=== PATIENT | female | born 1940 | race Caucasian/White ===

== ENCOUNTER 2017-06-30 10:15 | Emergency (ER) | payer OTHER ==
[~2017-06-30] VITALS: Ht 154.9 cm; Wt 55.9 kg
[2017-06-30 10:15] VITALS: Ht 154.9 cm; Wt 55.9 kg
[2017-06-30] MEDS ORDERED: ONDANSETRON 4 MG INJ IV STA (10:18)
[2017-06-30] MEDS ORDERED: SOD CHLORIDE 0.9% 1,000 ML IV STA (10:18)
--- NOTE | 2017-06-30 10:40 | RADRPT ---
PROCEDURE: Chest x-ray CLINICAL INDICATION: Chest pain TECHNIQUE: Chest single view COMPARISON: None FINDINGS: The heart is normal in size. The pulmonary vessels are normal in caliber. The lungs are clear. Th e costophrenic angles are sharp. The visualized bony thorax is unremarkable. IMPRESSION: No acute cardiopulmonary disease. RPTAT: HH .Wenceslao Raygoza MD, Date Time Electronically viewed and signed by .Wenceslao Raygoza MD, MD on 06/30/2017 10:40 .W/
[2017-06-30 10:46] LABS: BASOPHILS % 0.5 % (0.0-2.0); EOSINOPHILS # 0.1 10^3/ul (0.0-0.5); EOSINOPHILS % 1.2 % (0.0-7.0); HEMATOCRIT 41.3 % (37.0-47.0); LYMPHOCYTES # 2.9 10^3/ul (0.8-2.9); LYMPHOCYTES % 34.6 % (15.0-51.0); MEAN CORPUSCULAR HEMOGLOBIN 31.5 pg (29.0-33.0); MEAN CORPUSCULAR HGB CONC 33.9 g/dl (32.0-37.0); MEAN CORPUSCULAR VOLUME 92.8 fl (82.0-101.0); MONOCYTE # 0.7 10^3/ul (0.3-0.9); MONOCYTES % 8.3 % (0.0-11.0); NEUTROPHIL # 4.7 10^3/ul (1.6-7.5); NEUTROPHILS % 55.2 % (39.0-77.0); PLATELET COUNT 220 10^3/UL (140-415); RED BLOOD COUNT 4.45 10^6/ul (4.20-5.40); RED CELL DISTRIBUTION WIDTH 12.5 % (11.5-14.5); WHITE BLOOD COUNT 8.5 10^3/ul (4.8-10.8)
[2017-06-30 11:08] LABS: CALCIUM 9.2 mg/dl (8.4-10.2); CREATININE 0.76 mg/dl (0.44-1.00)
[2017-06-30 11:20] LABS: TROPONIN-I 0.015 ng/ml (0.00-0.12)
--- NOTE | 2017-06-30 11:46 | ERA ---
ER Documentation Chief Complaint Date/Time DATE: 06/30/17 TIME: 11:46 Chief Complaint Syncope HPI This is a 76-year-old female presents to the emergency room for evaluation of syncope. This patient was brought in by EMS after she was at work and stated that she was playing with her phone at her desk and she felt weak. The patient states that she momentarily lost consciousness. EMS stated that this patient was slightly diaphoretic when they arrived. The patient is denying any active chest pain at this time and came to the emergency room for evaluation. ROS All systems reviewed and are negative except as per history of present illness. Medications Home Meds No Active Prescriptions or Reported Meds Allergies Allergies: Coded Allergies: No Known Allergy (Unverified , 06/30/17) PMhx/Soc History of Surgery: No Anesthesia Reaction: No Hx Neurological Disorder: No Hx Respiratory Disorders: No Hx Cardiac Disorders: No Hx Psychiatric Problems: No Hx Miscellaneous Medical Probl: Yes (Pre diabetic) Hx Alcohol Use: No Hx Substance Use: No Hx Tobacco Use: No Smoking Status: Never smoker Physical Exam Vitals Vital Signs Date Time Temp Pulse Resp B/P Pulse Ox O2 Delivery O2 Flow Rate FiO2 06/30/17 10:53 72 17 149/68 100 Room Air 06/30/17 10:15 0 06/30/17 10:15 98.1 70 18 175/69 100 Physical Exam INITIAL VITAL SIGNS: Reviewed by me GENERAL: The patient is well developed and appropriate for usual state of health in no apparent distress HEENT: Pupils equal, round, and reactive to light. EOMI. There is no scleral icterus. NECK: C-spine is soft and supple, there is no meningismus. There is no cervical lymphadenopathy. LUNGS: Clear to auscultation bilaterally. There are no rales, wheezes or rhonchi. HEART: Regular rate and rhythm, no murmurs, clicks, rubs or gallops. ABDOMEN: Soft, non-tender, non-distended. There are bowel sounds in all four quadrants. No rebound or guarding. EXTREMITIES: There is no peripheral cyanosis or edema. No focal swelling or erythema. NEUROLOGICAL: The patient moves all four extremities with 5/5 strength. Cranial nerves II - XII are intact. Normal gait. Alert and oriented SKIN: There is no apparent rash or petechiae. HEME/LYMPHATIC: There is no evidence of excessive bruising or lymphedema. PSYCHIATRIC: The patient does not appear anxious or depressed. Result Diagram: 06/30/17 1030 06/30/17 1030 Results 24 hrs Laboratory Tests Test 06/30/17 10:30 White Blood Count 8.510^3/ul Red Blood Count 4.4510^6/ul Hemoglobin 14.0g/dl Hematocrit 41.3% Mean Corpuscular Volume 92.8fl Mean Corpuscular Hemoglobin 31.5pg Mean Corpuscular Hemoglobin Concent 33.9g/dl Red Cell Distribution Width 12.5% Platelet Count 48643^3/UL Mean Platelet Volume 11.0fl Neutrophils % 55.2% Lymphocytes % 34.6% Monocytes % 8.3% Eosinophils % 1.2% Basophils % 0.5% Nucleated Red Blood Cells % 0.0/100WBC Neutrophils # 4.710^3/ul Lymphocytes # 2.910^3/ul Monocytes # 0.710^3/ul Eosinophils # 0.110^3/ul Basophils # 0.010^3/ul Nucleated Red Blood Cells # 0.010^3/ul Sodium Level 143mmol/L Potassium Level 4.0mmol/L Chloride Level 104mmol/L Carbon Dioxide Level 26mmol/L Anion Gap 17 Blood Urea Nitrogen 19mg/dl Creatinine 0.76mg/dl Glucose Level 104mg/dl Calcium Level 9.2mg/dl Troponin I 0.015ng/ml Current Medications Medications (Trade) Dose Ordered Sig/Roderick Route PRN Reason Start Time Stop Time Status Last Admin Dose Admin Sodium Chloride (NS) 1,000 ml @ 1,000 mls/hr Q1H STAT IV 06/30/17 10:18 06/30/17 11:17 DC 06/30/17 10:42 Ondansetron HCl (Zofran Inj) 4 mg ONCE STAT IV 06/30/17 10:18 06/30/17 10:20 DC 06/30/17 10:42 Procedures/MDM EKG: Rate/Rhythm: [Normal Sinus Rhythm] QRS, ST, T-waves: [No changes consistent w/ acute ischemia] Impression: [No evidence of ischemia or arrhythmia] Chest X-ray 1V Interpreted by me: Soft Tissue: No acute abnormalities Bones: No acute abnormalities Mediastinum/Cardiac Silhouette/Lungs: [No acute abnormalities] This 76-year-old female presents to the emergency room for evaluation of syncopal episode. When I evaluated this patient she was hemodynamically stable and nontoxic appearing. The patient underwent a cardiac workup in the emergency room which shows normal vital signs, nonischemic EKG and negative chest x-ray. Her first troponin is negative however given this patient's age I did recommend transfer to [facility]. This patient was agreeable. The patient will be transferred to the next open available [place] facility and I spoken to Dr. Bucio. I have gotten confirmation #[id number] Departure Diagnosis: Primary Impression: Syncope Condition: Stable AHSANLIU RODRIGUES Jun 30, 2017 11:46
[2017-06-30 13:40] VITALS: BP 120/59; PULSE 85; RESP 14
== END 2017-06-30 16:18 | disposition short-term general hospital (02) ==
LOC: E/R 10:15
DX: R55 Syncope and collapse (principal)
CPT/HCPCS: 36415; 71010; 80048; 84484; 85025; 93005; 96374; 99285; J2405; J7030